=== PATIENT | male | born 1950 | race Caucasian/White ===

== ENCOUNTER 2019-06-07 13:00 | Emergency (ER) | payer MEDICARE, MEDICAID ==
[~2019-06-07] VITALS: Ht 180.3 cm; Wt 83.9 kg
[2019-06-07 13:10] VITALS: BP 135/91
[2019-06-07 13:50] LABS: Basophils # (auto) 0.1 10 ^3/uL (0-0.2); Basophils % (auto) 1.4 % (0.0-2.0); Eosinophils # (auto) 0.3 10 ^3/uL (0-0.8); Eosinophils % (auto) 3.8 % (0.0-7.0); Hematocrit 42.8 % (41.0-53.0); Hemoglobin 14.7 g/dL (13.5-17.5); Lymphocytes # (auto) 2.3 10 ^3/uL (0.4-5.4); Mean Corpuscular Hemoglobin 33.9 pg (28.0-32.0); Mean Corpuscular Hgb Conc. 34.3 g/dL (32.0-36.0); Mean Corpuscular Volume 98.8 fL (80.0-100.0); Monocytes # (auto) 0.6 10 ^3/uL (0-1.3); Monocytes % (auto) 9.1 % (0.0-12.0); Neutrophils # (auto) 3.6 10 ^3/uL (1.6-8.6); Neutrophils % (auto) 51.7 % (37.0-80.0); Nucleated Red Blood Cells % 0.1 %; Platelet Count (auto) 403 10^3/uL (140-450); Red Blood Cells 4.34 10^6/uL (4.5-5.90); Red Cell Distribution Width 13.5 % (11.8-14.3); White Blood Cell 6.9 10^3/uL (4.4-10.8)
[2019-06-07 14:09] LABS: Albumin 3.7 g/dL (3.4-5.0); Anion Gap 5 (5-15); Blood Urea Nitrogen 11 mg/dL (7-18); Calcium 8.2 mg/dL (8.5-10.1); Carbon Dioxide 27 mmol/L (21-32); Chloride 108 mmol/L (98-107); Glucose 89 mg/dL (74-106); Potassium 3.7 mmol/L (3.5-5.1); Sodium 140 mmol/L (136-145)
[2019-06-07 14:14] LABS: Alanine Aminotransferase 33 U/L (16-61); Alkaline Phosphatase 70 U/L (45-117); Aspartate Aminotransferase 29 U/L (15-37); BUN/Creatinine Ratio 9.9; Bilirubin, Total 0.4 mg/dL (0.2-1.0); GFR African American 85 mL/min; GFR Non-African American 70 mL/min; Total Protein 7.6 g/dL (6.4-8.2)
== END 2019-06-07 15:51 | disposition home or self-care (01) ==
LOC: ER 13:00
DX: H61.21 Impacted cerumen, right ear (principal); F17.210 Nicotine dependence, cigarettes, uncomplicated; I10 Essential (primary) hypertension; Z76.0 Encounter for issue of repeat prescription
CPT/HCPCS: 36415; 69209; 80053; 84484; 85025; 93005